=== PATIENT | female | born 1950 | race Caucasian/White ===

== ENCOUNTER → 2023-10-10 10:13 | Outpatient (REF) | payer OTHER, SELFPAY | LOC: RAD 10:13 | PROVIDERS: ATTENDING PHYSICIAN Family Medicine | DX: M54.2 Cervicalgia (principal) | CPT/HCPCS: 72052 ==

== ENCOUNTER 2024-03-12 08:48 | Outpatient (RCR) | payer OTHER, SELFPAY | END 2024-03-12 23:59 | disposition home or self-care (01) | LOC: RPT 08:48 | PROVIDERS: ATTENDING PHYSICIAN Family Medicine | DX: N95.2 Postmenopausal atrophic vaginitis (principal); M62.89 Other specified disorders of muscle; R39.15 Urgency of urination; N39.41 Urge incontinence; Z73.6 Limitation of activities due to disability | CPT/HCPCS: 97163; 97530 ==

== ENCOUNTER 2024-04-26 10:29 | Outpatient (RCR) | payer OTHER, SELFPAY | END 2024-04-26 23:59 | disposition home or self-care (01) | LOC: RPT 10:29 | PROVIDERS: ATTENDING PHYSICIAN Family Medicine | DX: N95.2 Postmenopausal atrophic vaginitis (principal); M62.89 Other specified disorders of muscle; R39.15 Urgency of urination; N39.41 Urge incontinence; Z73.6 Limitation of activities due to disability; R26.89 Other abnormalities of gait and mobility | CPT/HCPCS: 97110; 97140; 97530 ==

== ENCOUNTER 2024-05-24 10:01 | Outpatient (RCR) | payer OTHER, SELFPAY | END 2024-05-24 23:59 | disposition home or self-care (01) | LOC: RPT 10:01 | PROVIDERS: ATTENDING PHYSICIAN Family Medicine | DX: N95.2 Postmenopausal atrophic vaginitis (principal); M62.89 Other specified disorders of muscle; R39.15 Urgency of urination; N39.41 Urge incontinence; Z73.6 Limitation of activities due to disability; R26.89 Other abnormalities of gait and mobility | CPT/HCPCS: 97014; 97110; 97112; 97140; 97530 ==

== ENCOUNTER 2024-06-28 07:24 | Outpatient (RCR) | payer OTHER, SELFPAY | END 2024-06-28 23:59 | disposition home or self-care (01) | LOC: RPT 07:24 | PROVIDERS: ATTENDING PHYSICIAN Family Medicine | DX: N95.2 Postmenopausal atrophic vaginitis (principal); M62.89 Other specified disorders of muscle; N39.41 Urge incontinence; Z73.6 Limitation of activities due to disability; R26.89 Other abnormalities of gait and mobility; R39.15 Urgency of urination | CPT/HCPCS: 97014; 97112; 97140; 97530 ==

== ENCOUNTER 2024-07-12 09:19 | Outpatient (RCR) | payer OTHER, SELFPAY | END 2024-07-12 23:59 | disposition home or self-care (01) | LOC: RPT 09:19 | PROVIDERS: ATTENDING PHYSICIAN Family Medicine | DX: N95.2 Postmenopausal atrophic vaginitis (principal); M62.89 Other specified disorders of muscle; N39.41 Urge incontinence; Z73.6 Limitation of activities due to disability; R26.89 Other abnormalities of gait and mobility; R39.15 Urgency of urination | CPT/HCPCS: 97014; 97112; 97530 ==

== ENCOUNTER 2024-08-23 10:03 | Outpatient (RCR) | payer OTHER, SELFPAY | END 2024-08-23 23:59 | disposition home or self-care (01) | LOC: RPT 10:03 | PROVIDERS: ATTENDING PHYSICIAN Family Medicine | DX: N95.2 Postmenopausal atrophic vaginitis (principal); M62.89 Other specified disorders of muscle; N39.41 Urge incontinence; Z73.6 Limitation of activities due to disability; R26.89 Other abnormalities of gait and mobility; R39.15 Urgency of urination | CPT/HCPCS: 97014; 97110; 97112; 97530 ==

== ENCOUNTER 2024-09-06 08:05 | Outpatient (RCR) | payer OTHER, SELFPAY | END 2024-09-06 23:59 | disposition home or self-care (01) | LOC: RPT 08:05 | PROVIDERS: ATTENDING PHYSICIAN Family Medicine | DX: N95.2 Postmenopausal atrophic vaginitis (principal); M62.89 Other specified disorders of muscle; N39.41 Urge incontinence; Z73.6 Limitation of activities due to disability; R26.89 Other abnormalities of gait and mobility; R39.15 Urgency of urination | CPT/HCPCS: 97110; 97530 ==